=== PATIENT | male | born 1945 | race Caucasian/White ===

== ENCOUNTER 2024-07-31 11:42 | Emergency (ER) | payer OTHER ==
[~2024-07-31] VITALS: Ht 182.9 cm; Wt 77.6 kg
[2024-07-31 12:58] LABS: Source, Urine Foley catheter
[2024-07-31 13:13] LABS: Appearance, Urine Clear (Clear); Bilirubin, Urine Neg (Neg); Blood, Urine 3+ (Neg); Color, Urine Yellow (P-Yellow); Glucose Qualitative, Urine Neg (Neg); Ketones, Urine Neg (Neg); Leukocyte Esterase, Urine Neg (Neg); Nitrite, Urine Neg (Neg); Protein, Urine Neg (Neg); Specific Gravity, Urine 1.005 (1.003-1.022); Urobilinogen, Urine NORM (Normal)
[2024-07-31 13:21] LABS: Bacteria Rare /hpf; Squamous Epithelial Cells Rare /hpf (Few); White Blood Cells, Urine 0-2 /hpf (0-5)
[2024-08-01] MEDS ORDERED: CEPH500 PO (07:58)
== END 2024-07-31 13:43 | disposition home or self-care (01) ==
LOC: ER 11:42
PROVIDERS: Physician Assistant
DX: K21.9 Gastro-esophageal reflux disease without esophagitis (principal); R33.9 Retention of urine, unspecified
CPT/HCPCS: 51702; 51798; 81001; 99283-25

== ENCOUNTER 2024-07-31 18:09 | Emergency (ER) | payer OTHER ==
[~2024-07-31] VITALS: Ht 180.3 cm; Wt 74.8 kg
[2024-08-01] MEDS ORDERED: CEPH500 PO (07:58)
== END 2024-07-31 18:29 | disposition home or self-care (01) ==
LOC: ER 18:09
DX: R31.9 Hematuria, unspecified (principal); R33.9 Retention of urine, unspecified
CPT/HCPCS: 99282

== ENCOUNTER 2024-08-04 07:05 | Emergency (ER) | payer OTHER ==
[~2024-08-04] VITALS: Ht 182.9 cm; Wt 74.4 kg
[~2024-08-04 07:05] MED LIST: CEPH500 PO
[2024-08-04] MEDS ORDERED: Tamsulosin HCl 0.4 MG Cap PO ONE (08:20)
[2024-08-04] MEDS ORDERED: TAMS.4ER PO (08:24)
== END 2024-08-04 08:42 | disposition home or self-care (01) ==
LOC: ER 07:05
DX: Z46.6 Encounter for fitting and adjustment of urinary device (principal); Z87.448 Personal history of other diseases of urinary system; Z79.899 Other long term (current) drug therapy
CPT/HCPCS: 99283; A9270

== ENCOUNTER 2024-08-11 15:15 | Emergency (ER) | payer OTHER ==
[~2024-08-11] VITALS: Ht 182.9 cm; Wt 74.4 kg
[~2024-08-11 15:15] MED LIST changes: +TAMS.4ER PO
[2024-08-11] MEDS ORDERED: Pyridium200 MG PO (15:49)
== END 2024-08-11 15:51 | disposition home or self-care (01) ==
LOC: ER 15:15
DX: N39.0 Urinary tract infection, site not specified (principal); Z96.0 Presence of urogenital implants
CPT/HCPCS: 51798; 99283

== ENCOUNTER 2025-02-18 10:07 | Day surgery (SDC) | payer OTHER ==
[~2025-02-18] VITALS: Ht 182.9 cm; Wt 78.1 kg
[~2025-02-18 10:07] MED LIST changes: +ARTIFICIAL TEAR15 M7 BOTHEYES; +Balanced Salt Epinephrine Irrigation Solution 500 mL IR SCH; +DOXA2 PO; +Diazepam 5 MG Tab PO PRN; +Diazepam 5 MG Tab PO SCH; +FINA5 PO; +Lidocaine HCl/Pf 1% 5 ML VIAL XX SCH; +MELATONIN5 M1 PO; +Moxifloxacin HCL 0.5 MG/0.1 ML 0.4MLSYR RIGHTEYE SCH; +Ondansetron 4 MG SoluTab MM PRN; +PHENYLEPHRINE\\TROPICAMIDE\\TETRACAINE OPHTHALMIC DILATING SOLN RIGHTEYE PRN; +Povidone-Iodine 450 DROP/30 ML Solution ONE; +Povidone-Iodine 450 DROP/30 ML Solution RIGHTEYE SCH; +Pyridium200 MG PO; +SARNA TOP; +SELSUN TOP; +Tetracaine HCl/Pf 0.5% Opth Soln 4 ml ONE; +Vitamin D1000 UNI1 PO
[2025-02-18] MEDS ORDERED: Diazepam 10 MG Tab ONE (10:12)
--- NOTE | 2025-02-18 11:23 | NUR ---
02/18/25 Sumaya3 Smita Caceres BP-137/94 P-67 SPO2-100% W/ 10 L BLOW BY O2
== END 2025-02-18 11:56 | disposition home or self-care (01) ==
LOC: ORSCSDS 10:07
PROVIDERS: Student in an Organized Health Care Education/Training Program
PROC: 08RJ3JZ Replacement of Right Lens with Synthetic Substitute, Percutaneous Approach (ICD-10-PCS; principal; 2025-02-18 11:30)
DX: H25.811 Combined forms of age-related cataract, right eye (principal); Z96.1 Presence of intraocular lens; H04.123 Dry eye syndrome of bilateral lacrimal glands; H52.201 Unspecified astigmatism, right eye; H35.30 Unspecified macular degeneration; L71.9 Rosacea, unspecified; F32.A Depression, unspecified; I10 Essential (primary) hypertension; E78.5 Hyperlipidemia, unspecified; Z79.899 Other long term (current) drug therapy
CPT/HCPCS: A9270; V2632

== ENCOUNTER 2025-08-31 07:42 | Day surgery (SDC) | payer OTHER ==
[2025-08-31] VITALS (7 sets, daily range): BP systolic 131–160; BP diastolic 72–98
[~2025-08-31] VITALS: Ht 177.8 cm; Wt 79.0 kg
[~2025-08-31 07:42] MED LIST changes: -Balanced Salt Epinephrine Irrigation Solution 500 mL IR SCH; -Diazepam 5 MG Tab PO PRN; -Diazepam 5 MG Tab PO SCH; -Lidocaine HCl/Pf 1% 5 ML VIAL XX SCH; -Moxifloxacin HCL 0.5 MG/0.1 ML 0.4MLSYR RIGHTEYE SCH; -Ondansetron 4 MG SoluTab MM PRN; -PHENYLEPHRINE\\TROPICAMIDE\\TETRACAINE OPHTHALMIC DILATING SOLN RIGHTEYE PRN; -Povidone-Iodine 450 DROP/30 ML Solution ONE; -Povidone-Iodine 450 DROP/30 ML Solution RIGHTEYE SCH; -Tetracaine HCl/Pf 0.5% Opth Soln 4 ml ONE
[2025-08-31] MEDS ORDERED: CeFAZolin Sodium 2,000 MG in NS 100 ML IV SCH (07:55)
[2025-08-31] MEDS ORDERED: Albuterol 2.5 MG/3 ML VIAL INH PRN (08:15)
[2025-08-31] MEDS ORDERED: Ondansetron HCl 2 MG / ML 2ML Vial IV PRN (08:20)
[2025-08-31] MEDS ORDERED: HydrALAZINE HCl 20 MG / ML 1ML Vial IV PRN (08:20)
[2025-08-31] MEDS ORDERED: HYDROmorphone HCl/Pf 1MG SYR IV PRN ×2 (08:20)
[2025-08-31] MEDS ORDERED: Metoclopramide HCl 5MG / ML 2ML Vial IV PRN (08:20)
[2025-08-31] MEDS ORDERED: FentaNYL Citrate 50 MCG/ML 2 ML Injection IV PRN ×2 (08:20)
[2025-08-31] MEDS ORDERED: ePHEDrine Sulfate 50 MG/ML 1ML Injection IV PRN (08:25)
--- NOTE | 2025-08-31 08:49 | NUR ---
History, Chart, Medications and Allergies reviewed before start of procedure.Pre-Op teaching done. Pt verbalizes understanding.
[2025-08-31] MEDS ORDERED: FentaNYL Citrate 50 MCG/ML 2 ML Injection ONE ×2 (08:58→11:30)
[2025-08-31] MEDS ORDERED: Ketorolac Tromethamine 30mg Vial IV ONE (09:45)
[2025-08-31] MEDS ORDERED: Bupivacaine 0.5% HCl 5 MG/ML 30MLVIAL ONE (11:06)
[2025-08-31] MEDS ORDERED: ePHEDrine Sulfate 50 MG/ML 1ML Injection ONE (11:41)
[2025-08-31] MEDS ORDERED: Dexamethasone Sod Phos 10 MG/ML 1ML VIAL ONE (12:16)
[2025-08-31] MEDS ORDERED: Ondansetron HCl 2 MG / ML 2ML Vial ONE (12:16)
[2025-08-31] MEDS ORDERED: HYDROcodone 5-APAP 325 TAB PO PRN (12:45)
--- NOTE | 2025-08-31 13:42 | NUR ---
Discharge instructions reviewed with patient. Patient verbalizes understanding. Copy given to patient to take home. Patient States Post-Procedure ride home has been arranged. Discharged via wheelchair to private car for ride home.
== END 2025-08-31 23:18 | disposition home or self-care (01) ==
LOC: ORSCMMR 07:42 → ORD 09:00 → ORSCMMR 09:00
PROVIDERS: Surgery
PROC: 0YU60JZ Supplement Left Inguinal Region with Synthetic Substitute, Open Approach (ICD-10-PCS; principal; 2025-08-31 11:30)
DX: K40.90 Unilateral inguinal hernia, without obstruction or gangrene, not specified as recurrent (principal); D17.6 Benign lipomatous neoplasm of spermatic cord; I10 Essential (primary) hypertension; E78.5 Hyperlipidemia, unspecified; N40.0 Benign prostatic hyperplasia without lower urinary tract symptoms; F43.10 Post-traumatic stress disorder, unspecified; F32.A Depression, unspecified; Z79.899 Other long term (current) drug therapy
CPT/HCPCS: C1781; J0690; J1100; J1885; J2405; J2704; J3010; J7120